=== PATIENT | male | born 1945 | race Caucasian/White ===

== ENCOUNTER → 2017-10-28 12:39 | Outpatient (CLI) | payer MEDICARE ==
--- NOTE | ~2017-10-28 | EC ---
PATIENT:ALFONSO ANDRADE DATE OF SERVICE: 10/28/17 SEX: M MEDICAL RECORD: [id number] DATE OF : 43 [facility] [place] AGE OF PATIENT: 72 ADMISSION DATE: 10/28/17 REFERRING PHYSICIAN: INTERPRETING PHYSICIAN: SARAH FARRAR MD ECHOCARDIOGRAM REPORT ECHO CHARGES 4 ECHO COMPLETE Date: 10/28 CLINICAL DIAGNOSIS: AFIB/DYSPNEA ECHOCARDIOGRAPHIC MEASUREMENTS (adult normal given) AC root (d.<3.7cm) 4.3 cm LV Septum d (<1.2 cm> 1.7 cm Valve Excursion cm LV Septum (systole) 2.2 cm Left Atria (s.<4.0cm> 4.5 cm LVPW d(<1.2cm) 1.8 cm RV (d.<2.3cm) 4.5 cm LVPW (sytole) 2.2 cm LV diastole(<5.6CM) 4.7 cm MV E-F(>70mm/sec) cm LV systole 3.0 cm LVOT Diameter 2.5 cm MV exc.(>10mm) 2.1 cm Est.ejection fraction (50-75%) % DOPPLER: LVIT cm/sec A cm/sec E cm/sec LA cm/sec RVSP 29 mmHg LVOT 89 cm/sec AOP1/2T m/s Asc. Ao 151 cm/sec RVOT 82 cm/sec RA cm/sec PA 90 cm/sec AV Gradient Peak 9.10 mmHg AV Mean 4.43 mmHg AV Area 2.6 cm MV Gradient Peak 4.97 mmHg MV Mean 1.55 mmHg MV Area cm COMMENTS: Cigarette Making Examiner: 2 AMNA DON Electronic Equipment Installer: Tanja Farrar TAPE# PACS Pericardial Effusion N DATE OF SERVICE: PROCEDURE: Transthoracic echocardiogram. FINDINGS: 1. Left ventricle has mild left ventricular hypertrophy. Ejection fraction appears to be preserved at 55%. There are no obvious regional wall motion abnormalities. Endocardial structure is difficult to visualize. There are no obvious regional wall motion abnormalities. Inflow characteristics are unable to be calculated because of atrial fibrillation. ECHOCARDIOGRAM REPORT [id number] ALFONSO ANDRADE 2. The left atrium is moderately dilated. 3. The mitral valve is difficult to visualize, but grossly normal structure and function. 4. Tricuspid valve is difficult to visualize, but appears to have mild tricuspid regurgitation. RVSP appears to be normal. 5. The right ventricle is moderately dilated, but with good function. 6. The right atrium is mildly dilated with good function. 7. The pulmonic valve appears to be grossly normal. 8. There is no pericardial effusion. CONCLUSIONS: The patient does have evidence of left ventricular hypertrophy, atrial fibrillation, has preserved LV systolic function. TRANSINT:[id number] Voice Confirmation ID: [id number] DOCUMENT ID: [id number] SARAH FARRAR MD at 1147 CC: [id number] DICTATION DATE: 10/29/17 1041 ADHESIVE BANDAGE MAKING OPERATOR: 10/29/17 1057 DEP CLI 10/28/17 [address] [place] [address]
[~2017-10-28 12:39] MED LIST: ELIQUIS5 MG PO; FLOMAX0.4 MG PO; IMITREX100 MG PO; OMEPRAZOLE20 M1 PO; REGLAN10 MG PO; TOPAMAX50 MG PO; VANQUISH PO
[2017-12-07 07:26] VITALS: BMI 41.9
== END | disposition home or self-care (01) ==
LOC: D.ECHO 10-21 13:30
DX: I48.91 Unspecified atrial fibrillation (principal); R06.00 Dyspnea, unspecified

== ENCOUNTER 2017-12-07 07:15 | Outpatient (CLI) | payer MEDICARE ==
[~2017-12-07] VITALS: Ht 180.3 cm; Wt 136.4 kg
--- NOTE | ~2017-12-07 | HEMODYNAMI ---
PATIENT:ALFONSO ANDRADE MEDICAL RECORD: [id number] : 43 LOCATION:D.CAT ADMISSION DATE: 12/07/17 Generatedon:12/07/20179:43 Patient name: ALFONSO ANDRADE Patient #: [id number] SSN: D OB: 1945 Date of study: 12/07/2017 Page: Of Hemodynamic Procedure Report Patient Data Patient Demographics Procedure consent was obtained First Name: ALFONSO Gender: Male Last Name: RAYMOND : 1945 Middle Initial: W Age: 72 year(s) Patient #: [id number] Race: Unknown Additional ID: [id number] Contact details Address: [address] [place] [address] RO[address] State: [place] City: [place] Zip code: [address] Past Medical History Allergies Allergen Reaction Date Comments Reported Other allergy 12/07/2017 HYDROCODONE Admission Admission Data Admission Date: 12/07/2017 Admission Time: 7:15 Lab Results Lab Result Date: 12/07/2017 Lab Result Time: 0:00 Biochemistry Name Units Result Min Max BUN mg/dl 25 --(----)-* 7 18 Creatinine mg/dl 1.4 --(----)*- 0.6 1.3 CBC Name Units Result Min Max Hemoglobin g/dl 16.9 --(---*)-- 13.5 17.5 Procedure Procedure Types Cath Procedure Diagnostic Procedure [facility] w/Coronaries Sedation Charges Moderate Sedation up to 15 minutes Procedure Description Procedure Date Procedure Date: 12/07/2017 Procedure Start Time: 9:23 Procedure End Time: 9:39 Procedure Staff Name Function Kofi Laurent MD Performing Physician Evangelina Willett RT Monitor Carmel Cunningham RT Scrub Breanna Nava RN Nurse Procedure Data Cath Procedure Fluoroscopy Diagnostic fluoroscopy Total fluoroscopy Time: 6.4 time: 6.4 min min Diagnostic fluoroscopy Total fluoroscopy dose: dose: 1398 mGy 1398 mGy Contrast Material Contrast Material Type Amount (ml) Isovue 300 58 Entry Location Entry Primary Successful Side Size Upsize Upsize Entry Closure Jansen ccessful Closure Location (Fr) 1 (Fr) 2 (Fr) Remarks Device Remarks Radial Right 6 Fr Manual TR BAND artery Short Compression Estimated blood loss: 10 ml Diagnostic catheters Device Type Used For End Catheter Placement DIAGNOSTIC Weatherford 110cm 5 Procedure Fr catheter ([id number]) DIAGNOSTIC Quoc 110cm Procedure 5Fr catheter ([id number]) Procedure Complications No complications Procedure Medications Medication Administration Route Dosage Oxygen NC 2 l/min Lidocaine 2% added to field 20 Heparin Flush Bag added to field 2 bags (1000units/500ml NS) 0.9% NaCl I.V. 100 ml/hr Radial Cocktail I.A. 1 syringe (Verapomil 2mg/Nitro 400mcg/Heparin 1500units) Versed I.V. 1 mg Fentanyl I.V. 50 mcg Versed I.V. 1 mg Hemodynamics Rest HGB: 16.9 (g/dl) Heart Rate: 82 (bpm) Pressure Samples Time Site Value (mmHg) Purpose Heart Use Rate(bpm) 9:28 LV 115/10,16 EDP 103 Gradients Valve Time Site Site Mean SEP/DFP Peak To Heart Use 1 2 (mmHg) (sec/min) Peak Rate (mmHg) (bpm) Aortic 9:29 LV AO 101 Snapshots Pre Cath Intra NCS Post Cath Vital Signs Time Heart Resp SPO2 etCO2 NIBP (mmHg) Rhythm Pain Sedation Rate (ipm) (%) (mmHg) Status Level (bpm) 9:13:28 82 21 96 25.2 167/97(130) A-Fib 0 (11) 10(A) , No pain 9:17:42 79 17 92 22.5 157/102(128) A-Fib 0 (11) 10(A) , No pain 9:21:54 81 16 93 24.7 151/88(142) A-Fib 0 (11) 10(A) , No pain 9:26:08 99 18 95 2 161/106(115) A-Fib 0 (11) 10(A) , No pain 9:30:20 105 21 96 23.7 137/101(113) A-Fib 0 (11) 9(A) , No pain 9:34:23 93 18 94 21.5 153/100(133) A-Fib 0 (11) 10(A) , No pain 9:38:31 85 20 91 0 143/100(113) A-Fib 0 (11) 10(A) , No pain Medications Time Medication Route Dose Verified Delivered Reason Notes E ffectiveness by by 9:13:46 Oxygen NC 2 l/min Kofi Buffie used for Mehran Nava RN procedure 9:13:53 Lidocaine 2% added 20ml Kofi Kofi for local to vial Mehran Laurent MD anesthetic field 9:13:59 Heparin Flush added 2 bags Kofi Kofi used for Bag to Mehran Laurent MD procedure (1000units/500ml field HOWARD NS) 9:14:09 0.9% NaCl I.V. 100 Kofi Buffie Per ml/hr Mehran Nava RN physician 9:20:39 Versed I.V. 1 mg Kofi Buffie for sedation Mehran Nava RN, MD 9:20:45 Fentanyl I.V. 50 mcg Kofi Buffie for sedation Mehran Nava RN, MD 9:25:29 Radial Cocktail I.A. 1 Kofi Kofi for (Verapomil syringe Mehran Laurent MD vasodilation 2mg/Nitro MD 400mcg/Heparin 1500units) 9:26:18 Versed I.V. 1 mg Kofi Buffie for sedation Mehran Nava RN, MD Procedure Log Time Note 8:56:19 Signed procedure consent form obtained from patient. 8:56:21 Time tracking: Regular hours (M-F 7:00 - 5:00) 8:56:26 Plan of Care:Hemodynamics will remain stable., Cardiac rhythm will remain stable., Comfort level will be maintained., Respiratory function will remain adequate., Patient/ family verbilizes understanding of procedure., Procedure tolerated without complication., Recovers from procedure without complications.. 8:56:28 Evangelina Willett RT(R) sent for patient. Start room use. 8:56:39 H&P Date Dictated: 11/23/2017 Within 30 days and on chart., H&P Addendum completed by physician on day of procedure. (MUST COMPLETE FOR ALL OUTPATIENTS). 8:56:56 Patient allergic to Other allergyHYDROCODONE 9:12:18 Patient received from Pre/Post Procedure Room to [facility] 2 Alert and oriented. Tansferred to table in Supine position. 9:12:20 Warm blankets applied, and talia hugger turned on for patient comfort. 9:12:22 Correct patient and procedure confirmed by team. 9:12:24 ECG and BP/O2 sat monitors applied to patient. 9:12:25 Vital chart was started 9:12:35 Baseline sample Acquired. 9:12:39 Full Disclosure recording started 9:12:45 Family in waiting room. 9:12:49 Patient NPO since Midnight. 9:12:56 Is the patient allergic to Iodine/contrast media? No. 9:12:59 Was the patient premedicated? Yes 9:13:00 Is patient on blood thinner?Yes 9:13:05 ACC The patient was administered the following blood thiners within the last 24 hours: ACCPlavix 9:13:08 Patient diabetic? No. 9:13:16 Snore? Yes 9:13:18 Sleep apnea? No 9:13:23 Dentures? No ? 9:13:29 Patient pain scale 0/10 ?. 9:13:36 IV patent on arrival in left forearm with 0.9% NaCl at [facility]. 9:13:41 Lab results completed and on chart. 9:13:46 Oxygen 2 l/min NC was administered by Breanna Nava RN; used for procedure; 9:13:47 Right Radial & Right Groin area was prepped with chlora-prep and draped in sterile fashion 9:13:48 Alarms reviewed by R. N. 9:13:49 Sharps counted by scrub and verified by R.N. 9:13:50 Physician paged 9:13:53 Lidocaine 2% 20ml vial added to field was administered by Kofi Laurent MD; for local anesthetic; 9:13:59 Heparin Flush Bag (1000units/500ml NS) 2 bags added to field was administered by Kofi Laurent MD; used for procedure; 9:14:09 0.9% NaCl 100 ml/hr I.V. was administered by Breanna Nava RN; Per physician; 9:14:27 Use device set Radial Dx or PCI 9:20:03 Physician arrived 9:20:04 --------ALL STOP TIME OUT------ 9:20:04 Final Timeout: patient, procedure, and site verified with staff and physician. All members of the team are in agreement. 9:20:10 Right Radial & Right Groin site verified by team. 9:20:14 Physical assessment completed. ASA score P 2 - A patient with mild systemic disease as per Kofi Laurent MD. 9:20:18 Sedation plan: IV Moderate Sedation Medication:Versed, Fentanyl 9:20:39 Versed 1 mg I.V. was administered by Breanna Nava RN; for sedation; 9::45 Fentanyl 50 mcg I.V. was administered by Breanna Nava RN; for sedation; :: Lab Result : Hemoglobin 16.9 g/dl 9:: Lab Result : Creatinine 1.4 mg/dl 9:: Lab Result : BUN 25 mg/dl 9:23:08 Procedure started. 9::20 Local anesthetic to right radial artery with Lidocaine 2% by Kofi Laurent MD.INITIAL ACCESS ONLY 9:24:42 A 6 Fr Short sheath was inserted into the Right Radial artery 9:25:27 ACIST Syringe (77628) opened to sterile field. 9:25:27 Medline Cath Pack ([id number]) opened to sterile field. 9:25:28 Bag Decanter (2002S) opened to sterile field. 9:25:29 Radial Cocktail (Verapomil 2mg/Nitro 400mcg/Heparin 1500units) 1 syringe I.A. was administered by Kofi Laurent MD; for vasodilation; 9:25:29 DIAGNOSTIC WIRE .035 260cm J wire (600541) opened to sterile field. 9:25:32 Tegaderm 4 x 4 (1626W) opened to sterile field. 9:25:33 MBrace Wrist Support ([id number]) opened to sterile field. 9:25:37 NEEDLE Cook 21G 4cm Radial ([id number]) opened to sterile field. 9:25:51 SHEATH 6Fr Prelude Radial ([id number]) opened to sterile field. 9:26:13 A DIAGNOSTIC Weatherford 110cm 5 Fr catheter (259048) was advanced over the wire and used for Procedure. 9::18 Versed 1 mg I.V. was administered by Breanna Nava RN; for sedation; 9:26:40 Zero performed for pressure channel P1 9::43 Zero performed for pressure channel P1 9::55 Zero performed for pressure channel P1 9::23 Zero performed for pressure channel P1 9:28:26 LV gram done using LEGER 9:28:43 EF : 45 % 9:29:44 RCA angiography performed. 9:33:29 Catheter removed. 9:34:08 A DIAGNOSTIC Quoc 110cm 5Fr catheter ([id number]) was advanced over the wire and used for Procedure. 9:36:00 LCA angiography performed. 9:37:06 Catheter removed. 9:37:45 Sheath removed intact; hemostasis achieved with Manual Compression to the Right Radial artery. 9:37:48 Procedure ended.(Physican Out) 9:37:57 Fluoroscopy time 06.40 minutes. 9:38:01 Fluoroscopy dose: 1398 mGy 9:38:01 Flurop Dose total: 1398 9:38:05 Contrast amount:Isovue 300 58ml. 9:38:06 Sharps counted by scrub and verified by R.N. 9:38:10 TR band inflated with 11cc of air. 9:38:11 Insertion/operative site no bleeding no hematoma. 9:38:13 Post Procedure Pulses reassessed and unchanged 9:38:16 Post-procedure physical assessment completed. ASA score P 2 - A patient with mild systemic disease as per Kofi Laurent MD. 9:38:24 Post procedure rhythm: unchanged. 9:38:27 Estimated blood loss: 10 ml 9:38:35 Post procedure instruction explained to patient.Patient verbalizes understanding. 9:38:58 Procedure type changed to Cath procedure, Diagnostic procedure, LHC, LHC w/Coronaries, Sedation Charges, Moderate Sedation up to 15 minutes 9:38:59 Procedure and supply charges have been captured, reviewed, submitted and are correct. 9:39:46 Procedure Complication : No complications 9:39:48 Vital chart was stopped 9:39:49 See physician's report for complete and final results. 9:39:51 Report given to Pre/Post Procedure Room. 9:39:54 Patient transfered to Pre/Post Procedure Room with Bed. 9:39:57 Procedure ended. 9:39:57 Full Disclosure recording stopped 9:40:12 End room use (Document Last) Device Usage Item Name Manufacture Quantity Catalog Number Hospital Part Current M inimal Lot# / Charge Number Stock Stock Serial# Code ACIST Syringe Acist 1 19440 343578 055855 818820 2 0 (27191) Zendesk Medline Cath Cardinal 1 [id number] 350555 64490 152091 5 [facility] ([id number]) Bag Decanter Microtek 1 2001S 649775 12093 336313 5 (2001S) [employer] Inc. DIAGNOSTIC WIRE St Luis 1 557904 791892 789518 588711 3 0 .035 260cm J wire (787772) Tegaderm 4 x 4 3M 1 1626W 066535 175155 858253 5 (1626W) MBrace Wrist Advanced 1 140-0250-00 878847 96166 463419 5 Support Vascular ([id number]) Dynamics NEEDLE Cook 21G Cook Medical 1 [id number] 274201 031061 807968 5 4cm Radial (G10674) SHEATH 6Fr Merit 1 [id number] 147715 799887 909211 5 Prelude Radial Medical ([id number]) DIAGNOSTIC Terumo 1 40-3473 416016 943032 425511 5 [place] 110cm 5 Fr catheter (131563) DIAGNOSTIC Terumo 1 40-6263 611926 551844 900888 5 Quoc 110cm 5Fr catheter (454910) Signature Audit Brule Stage Time Signature Unsigned Intra-Procedure 12/07/2017 Carmel Cunningham 9:42:55 AM RT(R) Signatures Monitor : Evangelina Willett Signature : RT Date : Time : [facility] [address] [place] [address]
[~2017-12-07 07:15] MED LIST changes: -REGLAN10 MG PO
[2017-12-07] MEDS ORDERED: REGLAN10 MG PO (07:17)
[2017-12-07 07:26] VITALS: BP 144/80; Ht 180.3 cm; Wt 136.4 kg
[2017-12-07 07:39] LABS: BASOPHILS 0.4 % (0-2); EOSINOPHILS 2.2 % (0-7); HEMATOCRIT 49.1 % (42.0-54.0); HEMOGLOBIN 16.9 g/dL (13.5-17.5); IMMATURE GRANULOCYTES 0.1 % (0-5); LYMPHOCYTES 21.6 % (15-50); MCH 32.8 pg (26.0-34.0); MCHC 34.4 g/dL (31.0-37.0); MCV 95.3 fL (80.0-100.0); MEAN PLATELET VOLUME 9.3 fL (7.4-10.4); MONOCYTES 11.1 % (2-11); NEUTROPHILS 64.6 % (40-80); PLATELET COUNT 153 10x3/uL (130-400); RBC 5.15 10x6/uL (4.20-6.10); RDW 13.5 % (11.5-14.5); WBC 7.8 10x3/uL (4.8-10.8)
[2017-12-07 07:59] LABS: ANION GAP 11.2 mmol/L (8-16); CALCIUM 8.7 mg/dL (8.5-10.1); CREATININE - SERUM 1.4 mg/dL (0.6-1.3); POTASSIUM - SERUM 4.2 mmol/L (3.5-5.1)
== END 2017-12-07 12:05 | disposition home or self-care (01) ==
LOC: D.CATH 07:15
PROVIDERS: Internal Medicine Interventional Cardiology
DX: I25.10 Atherosclerotic heart disease of native coronary artery without angina pectoris (principal); R94.39 Abnormal result of other cardiovascular function study; I42.8 Other cardiomyopathies; Z01.812 Encounter for preprocedural laboratory examination

== ENCOUNTER 2018-03-01 09:59 | Outpatient (CLI) | payer MEDICARE ==
[~2018-03-01] VITALS: Ht 180.3 cm; Wt 136.4 kg
--- NOTE | ~2018-03-01 | OP ---
PATIENT NAME: ALFONSO ANDRADE MEDICAL RECORD: [id number] :43 LOCATION:D.CAT ADMISSION DATE: SURGEON: SARAH FARRAR MD DATE OF OPERATION: 03/01/2018 PROCEDURE: Cardioversion. PROCEDURE IN DETAIL: The patient was brought to cardiac catheterization lab in stable condition. Both groins were sterilely prepped and draped. The anterior chest had AP pads placed in an anterior and posterior position. The patient then had anesthesia assisted conscious sedation. After adequate anesthesia had been applied with counter pressure and 250 joules of biphasic energy, we converted the patient into a sinus rhythm and the patient maintained sinus rhythm. There were no complications to the procedure. The patient will follow up in 1-2 weeks for continued management of atrial fibrillation. TRANSINT:[id number] Voice Confirmation ID: [id number] DOCUMENT ID: [id number] SARAH FARRAR MD at 2344 CC: [id number] DICTATION DATE: 03/01/18 1146 MACHINE I COREMAKER: 03/01/18 1239 DEP CLI 03/01/18 [id number] [place] [address]
--- NOTE | ~2018-03-01 | HEMODYNAMI ---
PATIENT:ALFONSO ANDRADE MEDICAL RECORD: [id number] : 43 LOCATION:D.CAT ADMISSION DATE: 03/01/18 Generatedon:03/01/201811:50 Patient name: ALFONSO ANDRADE Patient #: [id number] SSN: : 1945 Date of study: 03/01/2018 Page: Of Hemodynamic Procedure Report Patient Data Patient Demographics Procedure consent was obtained First Name: ALFONSO Gender: Male Last Name: RAYMOND : 1945 Middle Initial: W Age: 72 year(s) Patient #: [id number] Race: Unknown Additional ID: [id number] Contact details Address: [address] [place] [address] ROAD State: [place] City: [place] Zip code: [address] Past Medical History Allergies Allergen Reaction Date Comments Reported Other allergy 12/07/2017 HYDROCODONE Admission Admission Data Admission Date: 03/01/2018 Admission Time: 9:59 Arrival Date: 03/01/2018 Arrival Time: 0:00 Admit Source: Other Insurance Payor: Medicare Height (in.): 71 BSA: 2.51 (m2) Height (cm.): 180.34 BMI: 41.84 (kg/m2) Weight (lbs.): 300 Weight (kg.): 136.08 Procedure Procedure Types Cath Procedure Diagnostic Procedure Cardioversion External Procedure Description Procedure Date Procedure Date: 03/01/2018 Procedure Start Time: 11:39 Procedure End Time: 11:46 Procedure Staff Name Function Deya Coffman RT Monitor Angelo Bustillos RN Nurse Kofi Laurent MD Performing Physician Robert Pierce Jr, CRNA Additional personnel Procedure Data Cath Procedure Fluoroscopy Diagnostic fluoroscopy Total fluoroscopy Time: 0 time: 0 min min Diagnostic fluoroscopy Total fluoroscopy dose: 0 dose: 0 mGy mGy Contrast Material Contrast Material Type Amount (ml) Isovue 300 0 Estimated blood loss: 0 ml Procedure Complications No complications Hemodynamics Rest BSA: 2.51 (m2) O2 Consumption: Estimated: 289.31 (ml/min) O2 Consumption indexed: Estimated:115.26 (ml/min/m) Heart Rate: 70 (bpm) Snapshots Pre Cath Intra NCS Post Cath Vital Signs Time Heart Resp SPO2 etCO2 NIBP (mmHg) Rhythm Pain Sedation Rate (ipm) (%) (mmHg) Status Level (bpm) 11:36:08 65 19 97 0 146/73(124) NSR 0 (11) 10(A) , No pain 11:40:22 78 15 97 18.1 152/102(110) NSR 0 (11) 10(A) , No pain 11:44:30 72 0 135/89(110) NSR 0 (11) 10(A) , No pain 11:47:34 98 12.1 120/77(98) NSR 0 (11) 10(A) , No pain Procedure Log Time Note 11:26:08 Diagnostic Cath Status : Elective 11:26:22 Angelo Bustillos RN sent for patient. Start room use. 11:26:22 Time tracking: Regular hours (M-F 7:00 - 5:00) 11:26:27 Plan of Care:Hemodynamics will remain stable., Cardiac rhythm will remain stable., Comfort level will be maintained., Respiratory function will remain adequate., Patient/ family verbilizes understanding of procedure., Procedure tolerated without complication., Recovers from procedure without complications.. 11:27:14 Patient Height : 71 inches 11:27:14 Admit Source: Other 11::27 Patient Weight : 300 lbs 11:27:27 Insurance Payor : Medicare 11:27:29 Arrival Date: 03/01/2018 12:00:00 AM 11:31:13 Patient received from Pre/Post Procedure Room to CCL 2 Alert and oriented. Tansferred to table in Supine position. 11:31:20 Warm blankets applied, and talia hugger turned on for patient comfort. 11:31:20 Correct patient and procedure confirmed by team. 11:31:22 Signed procedure consent form obtained from patient. 11:31:23 ECG and BP/O2 sat monitors applied to patient. 11:34:45 Vital chart was started 11:35:04 Baseline sample Acquired. 11:35:32 Rhythm: atrial fibrillation 11:35:33 Full Disclosure recording started 11:35:37 H&P Date Dictated: 03/01/2018 Within 30 days and on chart., H&P Addendum completed by physician on day of procedure. (MUST COMPLETE FOR ALL OUTPATIENTS). 11:35:38 Pre-procedure instructions explained to patient. 11:35:39 Pre-op teaching completed and patient verbalized understanding. 11:35:41 Family in waiting room. 11:35:45 Patient NPO since Midnight. 11:35:47 Is the patient allergic to Iodine/contrast media? No. 11:35:48 Was the patient premedicated? No 11:35:49 Is patient on blood thinner?Yes 11:35:51 ACC The patient was administered the following blood thiners within the last 24 hours: Eliquis 11:36:07 Patient diabetic? No. 11:36:10 Previous problem with sedation/anesthesia? No ? 11:36:12 Snore? Yes 11:36:13 Sleep apnea? No 11:36:14 Deviated septum? No 11:36:15 Opens mouth fully? Yes 11:36:16 Sticks out tongue? Yes 11:36:17 Airway obstruction? No ? 11:36:20 Dentures? No ? 11:36:53 Lab results completed and on chart. 11:37:02 Alarms reviewed by R. N. 11:37:02 Sharps counted by scrub and verified by R.N. 11:37:04 Physician paged 11:37:28 Physician arrived 11:37:28 --------ALL STOP TIME OUT------ 11:37:29 Final Timeout: patient, procedure, and site verified with staff and physician. All members of the team are in agreement. 11:37:55 Physical assessment completed. ASA score P 3 - A patient with severe systemic disease as per Kofi Laurent MD. 11:38:00 Sedation plan: TIVA Medication:Propofol 11:38:21 Robert Pierce Jr SECURITY BUSINESS ANALYST present and monitoring patient for TIVA. 11:38:38 Quick combo pads placed on patients chest and back. 11:38:56 Baseline sample Acquired. 11:39:38 Procedure started. 11:41:23 Defibrillator synced and charged to 250 Joules. 11:42:42 Shock delivered. 11:43:23 Patient cardioverted to sinus rhythm . 11:43:40 Procedure ended.(Physican Out) 11:44:03 Fluoroscopy time 00.00 minutes. 11:44:05 Fluoroscopy dose: 0 mGy 11:44:05 Flurop Dose total: 0 11:44:09 Contrast amount:Isovue 300 0ml. 11:45:10 Sharps counted by scrub and verified by R.N. 11:45:16 Insertion/operative site no bleeding no hematoma. 11:45:26 Post Procedure Pulses reassessed and unchanged 11:45:37 Post procedure rhythm: unchanged. 11:45:40 Estimated blood loss: 0 ml 11:45:42 Post procedure instruction explained to patient.Patient verbalizes understanding. 11:45:42 Patient needs reinforcement of post procedure teaching. 11:45:48 Procedure and supply charges have been captured, reviewed, submitted and are correct. 11:45:54 Procedure Complication : No complications 11:45:57 Vital chart was stopped 11:45:58 See physician's report for complete and final results. 11:46:18 Report given to Pre/Post Procedure Room. 11:46:22 Patient transfered to Pre/Post Procedure Room with Stretcher. 11:46:27 Procedure ended. 11:46:27 Full Disclosure recording stopped 11:46:31 End room use (Document Last) Signature Audit Rossiter Stage Time Signature Unsigned Intra-Procedure 03/01/2018 Deya Coffman 11:50:44 AM RT(R) Signatures Monitor : Deya Coffman RT Signature : Date : Time : [facility] [address] [place] [address]
[~2018-03-01 09:59] MED LIST changes: +REGLAN10 MG PO
[2018-03-01] MEDS ORDERED: BETAPACE 120 M120 MG PO (10:54)
[2018-03-01 11:02] VITALS: BP 140/87; Ht 180.3 cm; Wt 136.4 kg
[2018-03-01 11:26] LABS: INR 1.21 (0.85-1.17); PROTIME 14.9 SECONDS (11.6-15.0)
[2018-03-01 11:36] LABS: ANION GAP 16.8 mmol/L (8-16); CALCIUM 8.8 mg/dL (8.5-10.1); CARBON DIOXIDE 25.5 mmol/L (21.0-32.0); CREATININE - SERUM 1.3 mg/dL (0.6-1.3); POTASSIUM - SERUM 4.3 mmol/L (3.5-5.1)
[2018-03-01 12:22] LABS: BASOPHILS 0.3 % (0-2); EOSINOPHILS 1.5 % (0-7); HEMATOCRIT 49.4 % (42.0-54.0); HEMOGLOBIN 16.6 g/dL (13.5-17.5); IMMATURE GRANULOCYTES 0.3 % (0-5); LYMPHOCYTES 21.2 % (15-50); MCH 32.9 pg (26.0-34.0); MCHC 33.6 g/dL (31.0-37.0); MCV 97.8 fL (80.0-100.0); MEAN PLATELET VOLUME 9.9 fL (7.4-10.4); MONOCYTES 8.9 % (2-11); NEUTROPHILS 67.8 % (40-80); PLATELET COUNT 182 10x3/uL (130-400); RBC 5.05 10x6/uL (4.20-6.10); RDW 13.3 % (11.5-14.5); WBC 7.2 10x3/uL (4.8-10.8)
== END 2018-03-01 13:21 ==
LOC: D.CATH 09:59
PROVIDERS: Internal Medicine Cardiovascular Disease
DX: I48.91 Unspecified atrial fibrillation (principal)